=== PATIENT | female | born 1985 | race Caucasian/White ===

== ENCOUNTER 2018-01-08 06:22 | Inpatient (IN) | payer OTHER, MEDICAID ==
[~2018-01-08] VITALS: Ht 157.5 cm; Wt 99.8 kg
[2018-01-08] MEDS ORDERED: DEXT 5%/LR + PITOCIN 20UNITS/L 1,000 ML IV SCH ×2 (07:09→10:58)
[2018-01-08] MEDS ORDERED: LACTATED RINGERS 1,000 ML IV SCH (07:09)
[2018-01-08] MEDS ORDERED: METHYLERGONOVINE MALEATE 0.2 MG/ML IM PRN (07:15)
[2018-01-08] MEDS ORDERED: NALOXONE HCL 0.4 MG/ML 1ML VIAL IM PRN (07:15)
[2018-01-08] MEDS ORDERED: CARBOPROST TROMETHAMINE 250 MCG/ML AMPUL IM PRN (07:15)
[2018-01-08 08:13] LABS: CLARITY URINE CLEAR (CLEAR); COLOR URINE YELLOW (YELLOW); KETONES URINE NEGATIVE (NEGATIVE); LEUKOCYTE ESTERASE URINE 1+ (NEGATIVE); NITRITE URINE NEGATIVE (NEGATIVE); OCCULT BLOOD URINE 1+ (NEGATIVE); PH URINE 5.5 (4.5-8.0); PROTEIN URINE NEGATIVE (NEGATIVE); SPECIFIC GRAVITY URINE 1.017 (1.005-1.030); UROBILINOGEN URINE 0.2 E.U./dL (0.2-1.0)
[2018-01-08 08:15] LABS: BASOPHILS % 0.9 % (0.0-2.0); HEMATOCRIT. 27.3 % (36.0-48.0); HEMOGLOBIN. 9.1 g/dL (12.0-16.0); LYMPHOCYTES % 20.1 % (20.0-50.0); MEAN CORPUSCULAR HEMOGLOBIN 28.7 pg (28.0-32.0); MEAN CORPUSCULAR VOLUME 86.4 fL (81.0-99.0); MEAN PLATELET VOLUME 8.9 fl (7.4-10.4); MONOCYTES % 5.8 % (2.0-8.0); NEUTROPHILS % 70.2 % (40.0-76.0); PLATELET 232 x1000/uL (130-400); RED BLOOD CELL COUNT 3.16 mill/uL (4.2-5.4); RED CELL DISTRIBUTION WIDTH 15.4 % (11.6-14.6)
[2018-01-08 08:21] LABS: INR 0.9; PARTIAL THROMBOPLASTIN TIME 26.3 sec (23.4-31.0); PROTHROMBIN TIME 9.6 sec (9.4-11.6)
[2018-01-08] MEDS ORDERED: CEFAZOLIN 2000MG PREMIX 100 ML IV ONE (08:26)
[2018-01-08] MEDS ORDERED: PHENYLEPHRINE HCL 10 MG/ML 1ML (IV VIAL) IV ONE (08:26)
[2018-01-08] MEDS ORDERED: EPHEDRINE SULFATE 50MG/ML VIAL ONE (08:26)
[2018-01-08 08:39] LABS: *AMPHETAMINES SCREEN URINE NEGATIVE (NEGATIVE); *BARBITURATES SCREEN URINE NEGATIVE (NEGATIVE); *BENZODIAZEPINES SCREEN URINE NEGATIVE (NEGATIVE); *COCAINE SCREEN URINE NEGATIVE (NEGATIVE)
[2018-01-08 08:40] LABS: CANNABINOID URINE SCREEN NEGATIVE (NEGATIVE); METHADONE URINE SCREEN NEGATIVE (NEGATIVE); OPIATES URINE SCREEN NEGATIVE (NEGATIVE); PHENCYCLIDINE URINE SCREEN NEGATIVE (NEGATIVE)
[2018-01-08 09:30] LABS: RUBELLA IGG 13.7 IU/mL (4.99-10)
[2018-01-08 09:31] LABS: HEPATITIS B SURFACE ANTIGEN NEGATIVE
[2018-01-08] MEDS ORDERED: ONDANSETRON HCL 4MG/2ML VIAL ONE (10:13)
[2018-01-08] MEDS ORDERED: MORPHINE SULFATE/PF 1MG/ML 10ML AMP ONE (10:30)
[2018-01-08] MEDS ORDERED: HYDROCODONE/ACETAMINOPHEN 5/325MG TABLET PO PRN (11:00)
[2018-01-08] MEDS ORDERED: IBUPROFEN 400MG TABLET PO PRN (11:00)
[2018-01-08] MEDS ORDERED: LANOLIN OINT 0.25 GM TUBE TOP PRN (11:00)
[2018-01-08] MEDS ORDERED: BISACODYL 10MG SUPP PR PRN (11:00)
[2018-01-08] MEDS ORDERED: ONDANSETRON HCL 4MG/2ML VIAL IV PRN (11:00)
[2018-01-08] MEDS ORDERED: DIPHENHYDRAMINE 25MG CAPSULE PO PRN (11:00)
[2018-01-08] MEDS ORDERED: TETANUS, DIPHTHERIA, PERTUSSIS VAC/PF 0.5ML (>7YR OLD) IM ONE (11:00)
[2018-01-08 13:00] VITALS: BP 114/63
[2018-01-08 13:30] VITALS: BP 134/66
[2018-01-08 14:00] VITALS: BP 127/43
[2018-01-08 16:39] VITALS: BP 126/84
[2018-01-08 21:30] VITALS: BP 113/69
[2018-01-09 00:01] VITALS: BP 103/59
[2018-01-09 05:30] VITALS: BP 130/77
[2018-01-09 06:48] LABS: BASOPHILS % 0.5 % (0.0-2.0); EOSINOPHILS % 0.8 % (0.0-5.0); HEMATOCRIT. 25.2 % (36.0-48.0); HEMOGLOBIN. 8.4 g/dL (12.0-16.0); LYMPHOCYTES % 9.2 % (20.0-50.0); MEAN CORPUSCULAR HEMOGLOBIN 28.5 pg (28.0-32.0); MEAN CORPUSCULAR VOLUME 85.1 fL (81.0-99.0); MEAN PLATELET VOLUME 8.8 fl (7.4-10.4); MONOCYTES % 7.8 % (2.0-8.0); NEUTROPHILS % 81.7 % (40.0-76.0); PLATELET 191 x1000/uL (130-400); RED BLOOD CELL COUNT 2.96 mill/uL (4.2-5.4); RED CELL DISTRIBUTION WIDTH 15.6 % (11.6-14.6)
[2018-01-09 08:00] VITALS: BP 133/77
[2018-01-09] MEDS: PRENATAL VIT/FE FUMARATE/FA TABLET PO SCH (09:34)
[2018-01-09] MEDS: SIMETHICONE 80MG TABLET CHEW PO SCH ×4 (09:35→21:16)
[2018-01-09] MEDS: MAGNESIUM/ALUMINUM HYDROXIDE/SIMETHICONE 30ML UDC PO SCH ×3 (11:52→21:16)
[2018-01-09] MEDS: HYDROCODONE/ACETAMINOPHEN 5/325MG TABLET PO PRN ×2 (11:53→19:56)
[2018-01-09] MEDS: FERROUS SULFATE 325MG TABLET PO SCH ×2 (11:53→16:57)
[2018-01-09 16:00] VITALS: BP 117/68
[2018-01-09] MEDS: DOCUSATE SODIUM 100MG CAPSULE PO SCH (21:16)
[2018-01-09 22:00] VITALS: BP 130/80
[2018-01-10] MEDS: HYDROCODONE/ACETAMINOPHEN 5/325MG TABLET PO PRN ×2 (05:06→16:22)
[2018-01-10 05:30] VITALS: BP 128/73
[2018-01-10 08:00] VITALS: BP 126/75
[2018-01-10] MEDS: SIMETHICONE 80MG TABLET CHEW PO SCH ×4 (08:50→21:01)
[2018-01-10] MEDS: PRENATAL VIT/FE FUMARATE/FA TABLET PO SCH (08:50)
[2018-01-10] MEDS: FERROUS SULFATE 325MG TABLET PO SCH ×3 (08:50→16:22)
[2018-01-10] MEDS: MAGNESIUM/ALUMINUM HYDROXIDE/SIMETHICONE 30ML UDC PO SCH ×3 (12:59→21:01)
[2018-01-10 16:20] VITALS: BP 122/76
[2018-01-10] MEDS: DOCUSATE SODIUM 100MG CAPSULE PO SCH (21:00)
[2018-01-10 22:00] VITALS: BP 129/72
[2018-01-11] MEDS: HYDROCODONE/ACETAMINOPHEN 5/325MG TABLET PO PRN ×2 (02:49→14:10)
[2018-01-11 06:00] VITALS: BP 119/71
[2018-01-11] MEDS ORDERED: TETANUS, DIPHTHERIA, PERTUSSIS VAC/PF 0.5ML (>7YR OLD) IM ONE (06:00)
[2018-01-11] MEDS: SIMETHICONE 80MG TABLET CHEW PO SCH ×2 (08:11→14:10)
[2018-01-11] MEDS: FERROUS SULFATE 325MG TABLET PO SCH (08:11)
[2018-01-11] MEDS: MAGNESIUM/ALUMINUM HYDROXIDE/SIMETHICONE 30ML UDC PO SCH ×2 (08:11→14:11)
[2018-01-11] MEDS: PRENATAL VIT/FE FUMARATE/FA TABLET PO SCH (08:11)
[2018-01-11 08:30] VITALS: BP 128/72
== END 2018-01-11 15:00 | disposition home or self-care (01) | DRG 765 ==
LOC: L&D 06:22 → OBSVTOIN 09:50 → 7EST PP/OB 13:00
PROVIDERS: ADMIT Specialist; ATTEND Specialist
PROC: 10D00Z1 Extraction of Products of Conception, Low, Open Approach (ICD-10-PCS; 2018-01-08)
PROC: 0UB70ZZ Excision of Bilateral Fallopian Tubes, Open Approach (ICD-10-PCS; principal; 2018-01-08 11:00)
DX: O34.211 Maternal care for low transverse scar from previous cesarean delivery (principal); Z68.41 Body mass index [BMI] 40.0-44.9, adult; O99.02 Anemia complicating childbirth; E66.9 Obesity, unspecified; D64.9 Anemia, unspecified; O69.81X0 Labor and delivery complicated by cord around neck, without compression, not applicable or unspecified; N83.8 Other noninflammatory disorders of ovary, fallopian tube and broad ligament; J45.909 Unspecified asthma, uncomplicated; O99.214 Obesity complicating childbirth; O99.52 Diseases of the respiratory system complicating childbirth; Z30.2 Encounter for sterilization; Z3A.39 39 weeks gestation of pregnancy; Z82.49 Family history of ischemic heart disease and other diseases of the circulatory system; Z90.49 Acquired absence of other specified parts of digestive tract; Z37.0 Single live birth
CPT/HCPCS: 36415; 80305; 81003; 85025; 85610; 85730; 86592; 86703; 86762; 86850; 86900; 86920; 87340; 88302; 88304; 88307; 90715; G0378; J0690; J2274; J2370; J2405; J2590; J3490; J7120; A4315

== ENCOUNTER 2022-05-03 10:45 | Emergency (ER) | payer MEDICAID, OTHER ==
[~2022-05-03] VITALS: Ht 157.5 cm; Wt 73.0 kg
[2022-05-03 10:47] VITALS: BP 129/84
[2022-05-03] MEDS ORDERED: PREDNISONE 20MG TABLET PO STA (11:01)
[2022-05-03] MEDS ORDERED: IPRATROPIUM BROMIDE (0.02%) 0.5MG/2.5ML NEB HHN STA (11:01)
[2022-05-03] MEDS ORDERED: ALBUTEROL (0.083%) 2.5MG/3ML NEB HHN STA (11:01)
[2022-05-03] MEDS ORDERED: ALBU6.7H3 INH (12:35)
[2022-05-03] MEDS ORDERED: P20 MT (12:35)
== END 2022-05-03 13:03 | disposition home or self-care (01) ==
LOC: ER 10:54
DX: J45.901 Unspecified asthma with (acute) exacerbation (principal); Z98.890 Other specified postprocedural states; Z76.0 Encounter for issue of repeat prescription; Z90.49 Acquired absence of other specified parts of digestive tract
CPT/HCPCS: 71045; 94640; 99285; J7512; Z7610